=== PATIENT | male | born 1970 ===

== ENCOUNTER 2018-03-16 13:19 | Emergency (ER) | payer MEDICAID, OTHER ==
[~2018-03-16] VITALS: Ht 180.3 cm; Wt 82.6 kg
[2018-03-16] MEDS ORDERED: AMPH20CA3 PO (13:35)
[2018-03-16] MEDS ORDERED: VENL75TA4 PO (13:35)
[2018-03-16 13:43] LABS: BASOPHILS # (AUTO) 0.1 K/uL (0.0-8.0); BASOPHILS % (AUTO) 0.9 % (0.0-2.0); EOSINOPHILS % (AUTO) 0.3 % (0.0-7.0); HEMATOCRIT 42.7 % (36.7-47.1); HEMOGLOBIN 14.6 g/dL (12.5-16.3); LYMPHOCYTES # (AUTO) 0.9 K/uL (20.0-40.0); LYMPHOCYTES % (AUTO) 9.4 % (20.5-51.5); MEAN CORPUSCULAR HEMOGLOBIN 29.9 uug (23.8-33.4); MEAN CORPUSCULAR HGB CONC 34 g/dL (32.5-36.3); MEAN CORPUSCULAR VOLUME 87.2 fL (73.0-96.2); MONOCYTES # (AUTO) 0.9 K/uL (2.0-10.0); MONOCYTES % (AUTO) 9.3 % (0.0-11.0); NEUTROPHILS # (AUTO) 7.8 K/uL (1.8-8.9); NEUTROPHILS % (AUTO) 80.1 % (38.5-71.5); PLATELET COUNT (AUTO) 263 K/uL (152-348); WHITE BLOOD COUNT (AUTO) 9.8 K/uL (3.6-10.2)
[2018-03-16 13:56] LABS: CARBON DIOXIDE 27 mmol/L (21-32); CHLORIDE 103 mmol/L (98-107); CREATININE 1.6 mg/dL (0.6-1.3); GLUCOSE 104 mg/dL (74-106); POTASSIUM 3.4 mmol/L (3.5-5.1); UREA NITROGEN, BLOOD 24 mg/dL (7-18)
--- NOTE | 2018-03-16 13:59 | NUR ---
PT IS IN ROOM #1B. DR LASSITER EVALUATED THE PT.
[2018-03-16 14:02] LABS: ALANINE AMINOTRANSFERASE 55 U/L (16-63); ALKALINE PHOSPHATASE 83 U/L (50-136); ASPARTATE AMINOTRANSFERASE 42 U/L (15-37); BILIRUBIN,DIRECT 0.2 mg/dL (0.0-0.2); BILIRUBIN,TOTAL 0.8 mg/dL (0.2-1.0); TOTAL PROTEIN, SERUM 7.9 g/dL (6.4-8.2)
[2018-03-16] MEDS ORDERED: OLANZAPINE 10 MG VIAL IM ONE ×2 (14:38→14:45)
[2018-03-16] MEDS ORDERED: diphenhydrAMINE 50 MG/1 ML VIAL ONE (14:39)
[2018-03-16] MEDS ORDERED: LORAZEPAM 2 MG/1 ML VIAL IM ONE (14:45)
[2018-03-16] MEDS ORDERED: diphenhydrAMINE 50 MG/1 ML VIAL IM ONE (14:45)
[2018-03-16] MEDS ORDERED: LORAZEPAM 2 MG/1 ML VIAL ONE (14:45)
[2018-03-16 14:46] LABS: ETHANOL < 3 MG/DL (0-0)
[2018-03-16] MEDS ORDERED: IBUPROFEN 800 MG TABLET PO ONE (15:30)
[2018-03-16] MEDS ORDERED: HALOPERIDOL LACTATE 5 MG/1 ML VIAL IM ONE (15:30)
[2018-03-16] MEDS ORDERED: IBUPROFEN 800 MG TABLET ONE (15:31)
[2018-03-16] MEDS ORDERED: HALOPERIDOL LACTATE 5 MG/1 ML VIAL ONE (15:31)
--- NOTE | 2018-03-16 19:23 | NUR ---
Received report from Peter MOSQUEDA, pt. rousable and resting in bed, will call Vidya for psych eval. when appropriate, will continue to monitor, no acute distress,
[2018-03-16] MEDS ORDERED: IV NORMAL SALINE 1000 ML BAG IV ONE ×3 (20:30→22:45)
--- NOTE | 2018-03-16 20:30 | NUR ---
Pt. resting in bed, no acute distress,
--- NOTE | 2018-03-16 21:15 | NUR ---
Pt. resting in bed, no acute distress,
--- NOTE | 2018-03-16 22:30 | NUR ---
Pt. resting in bed, no acute distress,
[2018-03-16] MEDS ORDERED: LIDOCAINE 2% (UROJET) 10 ML JELLY MM ONE ×2 (23:30)
--- NOTE | 2018-03-16 23:45 | NUR ---
Called Art for psych. eval., unable to reach - will try again
--- NOTE | 2018-03-16 23:55 | NUR ---
Spoke w/ Art ENTRY LEVEL MARKETING REPRESENTATIVE for psych. eval., pt. resting in bed, no acute distress,
[2018-03-17 00:34] LABS: *BLOOD, URINE NEGATIVE (NEGATIVE); *CLARITY,URINE CLEAR (CLEAR); *COLOR,URINE YELLOW (YELLOW); *KETONES,URINE 1+ (NEGATIVE); *PROTEIN,URINE 1+ (NEGATIVE); *UROBILINOGEN,URINE 0.2 E.U./dl (NORMAL); LEUKOCYTE ESTERASE ,URINE NEGATIVE (NEGATIVE); NITRITE, URINE NEGATIVE (NEGATIVE); PH,URINE 5.5 (5.0-8.0); UGLUCOSE NEGATIVE (NEGATIVE)
--- NOTE | 2018-03-17 00:35 | NUR ---
Art AGRICULTURAL ECONOMIST at bedside for psych. eval.,
[2018-03-17 00:40] LABS: *BILIRUBIN,URIN 1+ (NEGATIVE)
[2018-03-17 00:47] LABS: *AMPHETAMINE, URINE POSITIVE (NEGATIVE); *BARBITURATE, URINE NEGATIVE (NEGATIVE); *CANNABINOID, URINE NEGATIVE (NEGATIVE); *COCCAINE, URINE NEGATIVE (NEGATIVE); *OPIATE, URINE NEGATIVE (NEGATIVE); *PHENCYCLIDINE SCREEN,URINE NEGATIVE (NEGATIVE)
[2018-03-17 00:51] LABS: BACTERIA,URINE NONE SEEN /HPF (NONE SEEN); MUCUS,URINE MODERATE /LPF (0-FEW); RBC,URINE 0-3 /HPF (0-3); SQUAMOUS EPITHELIAL CELL,UR FEW /HPF (NONE SEEN); TRANSITIONAL EPI CELLS,URINE FEW /LPF (NONE SEEN); WBC,URINE 0-3 /HPF (0-3)
--- NOTE | 2018-03-17 01:11 | NUR ---
Faxed summary report to [facility], pt. resting in bed, no acute distress,
--- NOTE | 2018-03-17 01:40 | NUR ---
Recieved call from Allison at [facility] intake, patient accepted by Dr. Edgar. Patient to be admitted to [facility] after 0700. Telephone number for Nurse Report is ext [phone].
--- NOTE | 2018-03-17 02:30 | NUR ---
Pt. resting in bed, no acute distress, will continue to monitor,
--- NOTE | 2018-03-17 03:30 | NUR ---
Pt. resting in bed, no acute distress, will continue to monitor,
--- NOTE | 2018-03-17 04:30 | NUR ---
Pt. resting in bed, no acute distress, will continue to monitor,
--- NOTE | 2018-03-17 05:18 | NUR ---
Pt. resting in bed, no acute distress, will continue to monitor,
--- NOTE | 2018-03-17 05:47 | NUR ---
Called [facility] for transport,
--- NOTE | 2018-03-17 06:40 | NUR ---
Charanjit w/ Phoe[facility] at [facility] - available for transport at 0830, will endorse to day shift RN
--- NOTE | 2018-03-17 07:09 | NUR ---
Gave report to day shift RN,
--- NOTE | 2018-03-17 07:10 | NUR ---
Per report from Rudy Earl pt has been accepted at [facility] ( Address: [address] [place] [id number] , ) which was arrnaged by Cuate Rodriguez LCSW. Transport has been arranged via [facility] with ETA for cook pickled meat at 0830.
--- NOTE | 2018-03-17 07:10 | NUR ---
Assumed care for patient. Pt sleeping with NAD noted, pending transfer.
--- NOTE | 2018-03-17 08:55 | NUR ---
Pt is awake,alert, calm and cooperative at this time. Pt was given water and orange juice as he requested and breakfast tray ordered. Pending trans to [facility] Varg[facility].
--- NOTE | 2018-03-17 09:00 | NUR ---
IV removed. Catheter intact and site benign. Pressure and 4x4 gauze applied to site. No bleeding noted.
--- NOTE | 2018-03-17 09:06 | NUR ---
Pt trans to [facility] via DIANNA Villegas noted upon transfer.
--- NOTE | 2018-03-17 09:10 | NUR ---
SBAR report given to Lucho at [facility] via telephone ext [phone] ).
== END 2018-03-17 09:17 | disposition short-term general hospital (02) ==
LOC: ER 13:21
DX: F15.10 Other stimulant abuse, uncomplicated (principal); F29 Unspecified psychosis not due to a substance or known physiological condition; Z88.8 Allergy status to other drugs, medicaments and biological substances; Z79.899 Other long term (current) drug therapy
CPT/HCPCS: 36415; 80048; 80076; 80307; 81001; 85025; 96372 ×3; 99285; G0480; J1200; J1630; J2060; A4663; C1758; J2358; J7030